=== PATIENT | male | born 1990 | race Caucasian/White ===

== ENCOUNTER 2022-05-24 14:14 | Emergency (ER) | payer MEDICARE, SELFPAY ==
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
--- NOTE | 2022-05-24 14:36 | XR_ITS ---
WS: [id number] Exam: XR hand LT min 3V* [id number] Date/Time of Exam: 05/24/2022 2:39 PM Reason For Exam: dorsal hand pain over 4th and 5th metacarpals No fracture or dislocation. Articular relationships are intact. 1 x 3 mm opaque density seen along th e first MP joint that may represent a soft tissue foreign body. XR/XR hand LT min 3V* [id number] IMPRESSION: 1. No fracture or dislocation. 2. 1 x 3 mm opaque density along the first MP joint probably a soft tissue fore ign body.
[2022-05-24 14:37] VITALS: BP 130/82; PULSE 88; RESP 18; TEMP 36.7; O2SAT 96
[2022-05-24 14:45] LABS: Basophils % 0.4 %; Eosinophils # 0.1 10^3/uL (0.0-0.8); Eosinophils % 0.7 %; Hematocrit 44.9 % (42.0-52.0); Hemoglobin 15.8 g/dL (11.7-16.6); Lymphocytes # 2.4 10^3/uL (0.8-4.8); Mean Corpuscular HGB Conc 35.2 g/dL (30.0-36.0); Mean Corpuscular Hemoglobin 31.1 pg (28.0-34.0); Mean Corpuscular Volume 88.4 fl (80-94); Mean Platelet Volume 9.4 fL (7.4-10.4); Monocytes # 0.7 10^3/uL (0.2-0.9); Monocytes % 7.5 %; Neutrophils # 5.72 10^3/uL (1.8-7.7); Neutrophils % 64.1 %; Nucleated Red Blood Cells % 0 %; Platelet Count 351 10^3/cmm (130-400); Red Blood Count 5.08 10^6/uL (4.1-5.3); White Blood Count 8.9 10^3/uL (4.0-10.0)
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
[2022-05-24 15:10] VITALS: RESP 14; BMI 27.1
[2022-05-24] MEDS: HYDROcodone-acetaminophen 5-325 mg Tablet 1 TAB PO (15:42)
[2022-05-24] MEDS: nicotine 21 mg Patch 1 PATCH TRANSDERMA (15:43)
[2022-05-24] MEDS: ondansetron 2 mg/ML SDV 2 mL 4 MG IVP (16:43)
[2022-05-24] MEDS: lidocaine 1% INJ 20 mL 4 ML INJECTION (16:44)
[2022-05-24] MEDS: cephALEXin 500 mg Capsule PO (17:00)
== END 2022-05-24 18:23 | disposition home or self-care (01) ==
PROVIDERS: Emergency Provider Nurse Practitioner Family
DX: S61.412A Laceration without foreign body of left hand, initial encounter (principal); V43.53XA Car driver injured in collision with pick-up truck in traffic accident, initial encounter
CPT/HCPCS: 12001; 70450; 72125; 73130; 85025; 96374; 99285; J2405

== ENCOUNTER 2023-04-10 14:59 | Emergency (ER) | payer MEDICARE, MEDICAID, SELFPAY ==
--- NOTE | 2023-04-10 15:01 | XR_ITS ---
WS: [id number] Right ankle, 3 views, 04/10/2023 Clinical Data: injury Comparison: None. Findings: There is a calcification adjacent to the tip of the lateral malleolus adjacent to the lateral talus.. The ankle mortise is normal. The talus and calcaneus are unremarkable. No soft tissue swelling over the medial or lateral malleolus is seen. Impression: Possible avulsion fracture from the lateral talus and recommend follow-up x-rays in 8 to 10 days.
[2023-04-10 15:16] VITALS: BP 155/76; PULSE 104; RESP 17; TEMP 36.8; O2SAT 97; BMI 27.1
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
[2023-04-10 15:35] VITALS: BP 125/79; RESP 16; O2SAT 97
[2023-04-10] MEDS: HYDROcodone-acetaminophen 7.5-325 mg Tablet 1 TAB PO (15:39)
--- NOTE | 2023-04-11 08:11 | DCPLANNER ---
Referral was sent to podiatry on 04/11/23 at 0811. Clinic to contact patient.
== END 2023-04-10 16:04 | disposition home or self-care (01) ==
PROVIDERS: Emergency Provider Nurse Practitioner Family
DX: S92.154A Nondisplaced avulsion fracture (chip fracture) of right talus, initial encounter for closed fracture (principal); S00.81XA Abrasion of other part of head, initial encounter; S80.812A Abrasion, left lower leg, initial encounter; W14.XXXA Fall from tree, initial encounter
CPT/HCPCS: 73610; 73630; 99283; E0114

== ENCOUNTER → 2023-04-18 08:10 | Outpatient (BNVA) | payer MEDICARE, MEDICAID, SELFPAY | PROVIDERS: PCP Nurse Practitioner Family; Visit Provider Podiatrist Foot & Ankle Surgery | DX: S92.101A Unspecified fracture of right talus, initial encounter for closed fracture; W14.XXXA Fall from tree, initial encounter; Y93.H9 Activity, other involving exterior property and land maintenance, building and construction | CPT/HCPCS: 73610; 99203 ==

== ENCOUNTER 2023-04-24 09:37 | Outpatient (CLI) | payer MEDICARE, SELFPAY ==
--- NOTE | 2023-04-24 09:00 | CT_ITS ---
WS: [id number] CT RIGHT ANKLE, NONCONTRAST, 3D. HISTORY: Right talus fracture Technique: All CT scans at [facility] use at least one of these dose optimization techniques: automated exposure control; mA and/or kV adjustment per patient size (includes targeted exams where dose is matched to clinical indication); or iterative reconstruction. DLP: 140.15 mGy.cm COMPARISON: Prior radiographs 04/18/2023 and 04/10/2023 Well-circumscribed accessory ossicle distal fibula, subfibulare accessory ossicle. Additional well-ci rcumscribed os peroneal accessory ossicle. Distal fibula is intact. No fracture lateral malleolus. Lateral to the distal medial tibia is a roll of small calcifications or tiny osseous fragments. This does not correspond to the area of pain. There is an additional tiny avulsion fracture or calcificati on along the anterior medial talus. Tiny avulsion fractures or calcifications at the distal tibiotala r articulation. There is soft tissue edema around the ankle. The ankle mortise is intact. IMPRESSION: 1. No widening of the ankle mortise. 2. Numerous accessory ossicles as above. 3. There are a few very tiny ossifications or calcifications in the soft tissues as above. No definit e fracture.
== END 2023-04-24 09:38 | disposition home or self-care (01) ==
LOC: RAD 09:37
PROVIDERS: PCP Nurse Practitioner Family; Visit Provider Podiatrist Foot & Ankle Surgery
DX: S92.101A Unspecified fracture of right talus, initial encounter for closed fracture; W14.XXXA Fall from tree, initial encounter; Y93.H9 Activity, other involving exterior property and land maintenance, building and construction
CPT/HCPCS: 73700; 99213

== ENCOUNTER 2023-05-07 11:58 | Outpatient (CLI) | payer MEDICARE, SELFPAY | END 2023-05-07 11:59 | disposition home or self-care (01) | LOC: SPT 11:58 | PROVIDERS: PCP Nurse Practitioner Family; Visit Provider Podiatrist Foot & Ankle Surgery | DX: Z46.89 Encounter for fitting and adjustment of other specified devices (principal); S42.101D Fracture of unspecified part of scapula, right shoulder, subsequent encounter for fracture with routine healing; X58.XXXD Exposure to other specified factors, subsequent encounter; M25.571 Pain in right ankle and joints of right foot; S92.101A Unspecified fracture of right talus, initial encounter for closed fracture; W14.XXXA Fall from tree, initial encounter; Y93.H2 Activity, gardening and landscaping | CPT/HCPCS: 97760; 99213; L1902 ==

== ENCOUNTER → 2023-05-30 10:24 | Outpatient (BNVA) | payer MEDICARE, SELFPAY | PROVIDERS: PCP Nurse Practitioner Family; Visit Provider Podiatrist Foot & Ankle Surgery | DX: S92.101A Unspecified fracture of right talus, initial encounter for closed fracture (principal); W14.XXXA Fall from tree, initial encounter; Y93.H2 Activity, gardening and landscaping | CPT/HCPCS: 99213 ==

== ENCOUNTER 2023-07-19 08:09 | Outpatient (CLI) | payer MEDICARE, MEDICAID, SELFPAY ==
--- NOTE | 2023-07-19 07:00 | US_ITS ---
WS: [id number] TESTICULAR ULTRASOUND HISTORY: N50.89 - Other specified disorders of the male genital or... COMPARISON: None available. TECHNIQUE: Real-time and color Doppler imaging or utilized to perform a testicular ultrasound. Right testicle: 5.0 cm x 3.4 cm x 2.4 cm. Normal size and echogenicity. No mass or torsion. Normal color Doppler is present throughout. Systolic and diastolic velocities are both present. No significant hydrocele. Right epididymis: Normal epididymis with no increased vascularity. Left testicle: 4.7 cm x 3.7 cm x 2.4 cm. Normal size and echogenicity. No mass or torsion. Normal color Doppler is present throughout. Systolic and diastolic velocities are both present. No significant hydrocele. Left epididymis: Normal epididymis with no increased vascularity. There is a very tiny superficial focus which is of decreased echogenicity in the lateral LEFT scrotal wall. This is probably an infected hair follicle or sebaceous cyst. No increased vascularity. Benign in appearance. Scrotal wall focus measures 9 x 9 mm. IMPRESSION: NORMAL TESTICULAR ULTRASOUND. Very small LEFT scrotal wall hypoechoic nodule. Differential includes sebaceous cyst or infected hair follicle. Benign in appearance.
== END 2023-07-19 08:10 | disposition home or self-care (01) ==
LOC: RAD 08:09
PROVIDERS: PCP Nurse Practitioner Family; Visit Provider Nurse Practitioner Family
DX: N49.2 Inflammatory disorders of scrotum (principal); N50.89 Other specified disorders of the male genital organs
CPT/HCPCS: 76870

== ENCOUNTER 2025-05-08 20:41 | Emergency (ER) | payer OTHER, SELFPAY ==
[2025-05-08 20:51] VITALS: BP 126/80; PULSE 105; RESP 16; TEMP 36.4; O2SAT 96; BMI 20.3
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
--- NOTE | 2025-05-08 22:38 | W.ED.EXTPRO ---
HPI - Extremity Problem General: Chief complaint: Extremity Injury, Upper Stated complaint: Injury Top of Rt Hand Time Seen by Provider: 05/08/25 22:10 History of Present Illness: Patient is a 34-year-old male who presents with a hand injury. He reports that he was working with a car rear end when he sustained a crush injury to his hand. He had to pull his hand back to free it from the car. He denies any obvious lacerations but complains of pain and swelling in the affected area. This happened today Related Data Previous Rx's ?Medication ?Instructions ?Recorded ASO brace #1 ea 05/07/23 cephalexin 500 mg capsule 500 mg PO Q12H 7 days #14 caps 07/19/23 acetaminophen 500 mg tablet 500 mg PO Q6H PRN fever or pain 01/04/25 (Tylenol Extra Strength) #100 tabs dextromethorphan HBr 15 mg capsule 30 mg (2 x 15 mg) PO Q8H cough #30 01/04/25 (Tussin Cough (DM only)) caps Allergies Allergy/AdvReac Type Severity Reaction Status Date / Time No Known Allergies Allergy Verified 05/08/25 20:57 PFS ED PFSH: Medical History Influenza-like illness Family History Father Heart disease Social History Smoking and tobacco/nicotine status: current every day tobacco/nicotine user cigarettes Packs smoked per day: 0.5 Alcohol intake: never Substance/Drug Use: never Adopted: No Caregiver/support person: No Lives independently: No Household members: family service: No Current occupational status: unemployed Sexually active: Yes Do you think of yourself as: Straight/Heterosexual Current gender identity: Male Physical Exam Const: COMMON NORMALS: no acute distress GENERAL APPEARANCE: cooperative; not ill appearing and not frail appearing HENMT: COMMON NORMALS: normocephalic and atraumatic HEAD & SCALP: normocephalic and atraumatic FACE & SINUS: normal facial exam and face symmetric Eye: COMMON NORMALS: Equal, round and reactive pupils present and EOMs intact bilaterally PUPIL: Yes Equal, round and reactive pupils present Neck/C-Spine: GENERAL: Yes trachea midline Chest: CHEST: Yes Symmetrical chest wall rise Resp: COMMON NORMALS: normal respiratory effort, No retractions and No use of accessory muscles Cardio: COMMON NORMALS: regular rate and regular rhythm RATE: regular rate RHYTHM: regular rhythm Extremity: NARRATIVE EXTREMITY EXAM: Exam of the right upper extremity reveals mild soft tissue swelling over the 4th and 5th metacarpal. There is no wrist effusion. There is significant tenderness from the ulnar wrist to the 4th and 5th MCP mainly. There is diffuse tenderness otherwise. No deformity. Sensation is intact to touch. Capillary refill is normal. Neuro: CELESTINA COMA SCALE: document GCS findings [place] coma scale eye opening: Spontaneous [place] coma scale verbal response: Orientated [place] coma scale motor response: Obey commands [place] coma scale total score: 15 SENSORY EXAM: Yes extremities (intact) Course Vital Signs: Vital signs: Vital Signs Temperature 97.6 F 05/08/25 20:51 Pulse Rate 91 05/08/25 22:44 Respiratory Rate 16 05/08/25 22:44 Blood Pressure 121/82 05/08/25 22:44 Pulse Oximetry 98 05/08/25 22:44 Oxygen Delivery Me thod Room Air 05/08/25 20:51 MDM - Extremity (Nontraumatic) Medical Decision Making No fracture on x-ray. He is more tender on the ulnar aspect and the radial aspect. Not concerned about potential subluxation of the first MCP as noted by radiology. Ice. Anti-inflammatories. Return for problems. Lab Data Radiology Impressions Hand X-Ray 05/08/25 21:55 IMPRESSION: 1. No acute fracture. 2. Subtle volar subluxation of the 1st MCP joint is suspected. Recommend correlation with clinical stability and consideration of advanced imaging if clinically indicated. All radiology interpretation(s) finalized by discharge Discharge Plan Discharge Patient Disposition: Home Clinical Impression: Crushing injury of hand, right Qualifiers: Encounter type: initial encounter Qualified Code(s): S67.21XA - Crushing injury of right hand, initial encounter Condition: Stable Prescriptions: No Action acetaminophen [Tylenol Extra Strength] 500 mg tablet 500 mg PO Q6H PRN (Reason: fever or pain) Qty: 100 0RF dextromethorphan HBr [Tussin Cough (DM only)] 15 mg capsule 30 mg PO Q8H Qty: 30 0RF (DME) ASO brace See Rx Instructions .Route .MEDSUPPLY Qty: 1 0RF Rx Instructions: As directed cephalexin 500 mg capsule 500 mg PO Q12H 7 Days Qty: 14 0RF Discharge Orders: Discharge ED (Routine); Ordered 05/08/25 Ordered By: Diego Garcia Patient Instructions: Crush Injury (ED), Opioid Safety, Pain Management, Patient Portal & Ab Instructions Activity Restrictions/Additional Instructions: Ice frequently. Take anti-inflammatories for pain and swelling. Move the hand much as possible, as this can mobilize the swelling as well. Return for problems. Print Language: Albanian Coding Level of Care Code ED Beader Tender for Bryan Nails
[2025-05-08] MEDS: oxyCODONE-APAP 5-325 mg Tablet 2 TAB PO (22:42)
[2025-05-08 22:44] VITALS: BP 121/82; PULSE 91; RESP 16; O2SAT 98
== END 2025-05-08 22:46 | disposition home or self-care (01) ==
PROVIDERS: Emergency Provider Emergency Medicine
DX: S67.21XA Crushing injury of right hand, initial encounter (principal); F17.210 Nicotine dependence, cigarettes, uncomplicated; X58.XXXA Exposure to other specified factors, initial encounter
CPT/HCPCS: 73130; 99283; J9999